=== PATIENT | female | born 1945 | race Caucasian/White ===

== ENCOUNTER → 2017-04-09 | Outpatient (CLI) | payer OTHER ==
[~2017-04-09] MED LIST: Ecotrin PO; Flovent 110 mcg IH; NORCO 5/3251 TABLET PO; SIMVASTATIN40 MG PO
== END | disposition home or self-care (01) ==
LOC: RAD 08:25
DX: R13.10 Dysphagia, unspecified (principal); K21.9 Gastro-esophageal reflux disease without esophagitis
CPT/HCPCS: 74220

== ENCOUNTER → 2017-11-20 | Outpatient (CLI) | payer OTHER | END | disposition home or self-care (01) | LOC: CDC 11:19 | DX: Z01.810 Encounter for preprocedural cardiovascular examination (principal); M25.562 Pain in left knee; I27.9 Pulmonary heart disease, unspecified; R94.31 Abnormal electrocardiogram [ECG] [EKG] | CPT/HCPCS: 93000 ==